=== PATIENT | female | born 1990 | race African-American/Black ===

== ENCOUNTER 2022-07-18 10:03 | Observation (INO) | payer MEDICAID ==
[~2022-07-18] VITALS: Ht 149.9 cm; Wt 91.6 kg
[2022-07-24] MEDS ORDERED: BUTORPHANOL TARTRATE 2 MG/ML VIAL IV PRN (11:00)
[2022-07-24] MEDS ORDERED: LIDOCAINE HCL 1% 20ML VIAL (Pyxis) INJ INFIL SCH (11:00)
[2022-07-24] MEDS ORDERED: NALOXONE HCL 0.4 MG/ML 1ML VIAL IM PRN (11:00)
[2022-07-24] MEDS ORDERED: LACTATED RINGERS 1,000 ML IV SCH (11:00)
[2022-07-24] MEDS ORDERED: OXYTOCIN 30 UNITS/500ML NS PMX 500 ML IV SCH (11:00)
[2022-07-24] MEDS ORDERED: METHYLERGONOVINE MALEATE 0.2 MG/ML IM PRN (11:00)
[2022-07-24] MEDS ORDERED: MISOPROSTOL 100MCG TABLET VG SCH (12:00)
[2022-07-25] MEDS ORDERED: PREN-176 PO (02:44)
[2022-07-25] MEDS ORDERED: VIT1TABL62 PO (02:44)
[2022-07-25] MEDS ORDERED: OMEG-108 PO (02:44)
[2022-07-25] MEDS ORDERED: FERR-71 PO (02:44)
[2022-07-25] MEDS ORDERED: DOCO100C PO (02:44)
== END 2022-07-24 15:45 | disposition home or self-care (01) ==
LOC: 8 EST LDRP 07-24 08:06 → OBSVTOIN 07-24 08:06 → INTOOBSV 07-24 08:06
PROVIDERS: ADMIT Obstetrics & Gynecology; ATTEND Obstetrics & Gynecology
DX: O62.9 Abnormality of forces of labor, unspecified (principal); Z3A.40 40 weeks gestation of pregnancy
CPT/HCPCS: 59025; 76805; 76818; 94640; G0378; 99281; J7120

== ENCOUNTER 2022-07-24 23:35 | Inpatient (IN) | payer MEDICAID ==
[~2022-07-24] VITALS: Ht 149.9 cm; Wt 95.3 kg
[2022-07-25] MEDS ORDERED: PREN-176 PO (02:44)
[2022-07-25] MEDS ORDERED: DOCO100C PO (02:44)
[2022-07-25] MEDS ORDERED: FERR-71 PO (02:44)
[2022-07-25] MEDS ORDERED: OMEG-108 PO (02:44)
[2022-07-25] MEDS ORDERED: VIT1TABL62 PO (02:44)
[2022-07-25] MEDS ORDERED: METHYLERGONOVINE MALEATE 0.2 MG/ML IM PRN (02:45)
[2022-07-25] MEDS ORDERED: OXYTOCIN 30 UNITS/500ML NS PMX 500 ML IV SCH (02:45)
[2022-07-25] MEDS ORDERED: NALOXONE HCL 0.4 MG/ML 1ML VIAL IM PRN (02:45)
[2022-07-25] MEDS ORDERED: LIDOCAINE HCL 1% 20ML VIAL (Pyxis) INJ INFIL SCH (02:45)
[2022-07-25] MEDS ORDERED: BUTORPHANOL TARTRATE 2 MG/ML VIAL IV PRN (02:45)
[2022-07-25 03:25] LABS: EOSINOPHILS % 2.1 % (0.0-5.0); HEMATOCRIT. 36.5 % (36.0-48.0); HEMOGLOBIN. 12.1 g/dL (12.0-16.0); LYMPHOCYTES % 18.4 % (20.0-50.0); MEAN CORPUSCULAR HEMOGLOBIN 30.4 pg (28.0-32.0); MEAN CORPUSCULAR VOLUME 91.7 fL (81.0-99.0); MEAN PLATELET VOLUME 8.6 fl (7.4-10.4); MONOCYTES % 8.4 % (2.0-8.0); NEUTROPHILS % 70.1 % (40.0-76.0); PLATELET 298 x1000/uL (130-400); RED BLOOD CELL COUNT 3.98 mill/uL (4.2-5.4)
[2022-07-25 03:26] LABS: CLARITY URINE CLOUDY (CLEAR); COLOR URINE YELLOW (YELLOW); KETONES URINE NEGATIVE (NEGATIVE); LEUKOCYTE ESTERASE URINE TRACE (NEGATIVE); NITRITE URINE NEGATIVE (NEGATIVE); OCCULT BLOOD URINE NEGATIVE (NEGATIVE); PROTEIN URINE NEGATIVE (NEGATIVE); SPECIFIC GRAVITY URINE 1.016 (1.005-1.030); UROBILINOGEN URINE 0.2 E.U./dL (0.2-1.0)
[2022-07-25 03:37] LABS: INR 0.9; PARTIAL THROMBOPLASTIN TIME 27.1 sec (23.4-31.0); PROTHROMBIN TIME 9.9 sec (9.6-11.0)
[2022-07-25 04:15] LABS: HEPATITIS B SURFACE ANTIGEN NEGATIVE
[2022-07-25 04:18] LABS: *AMPHETAMINES SCREEN URINE NEGATIVE (NEGATIVE); *BARBITURATES SCREEN URINE NEGATIVE (NEGATIVE); *BENZODIAZEPINES SCREEN URINE NEGATIVE (NEGATIVE); *COCAINE SCREEN URINE NEGATIVE (NEGATIVE); CANNABINOID URINE SCREEN NEGATIVE (NEGATIVE); METHADONE URINE SCREEN NEGATIVE (NEGATIVE); OPIATES URINE SCREEN NEGATIVE (NEGATIVE); PHENCYCLIDINE URINE SCREEN NEGATIVE (NEGATIVE)
[2022-07-25] MEDS: LACTATED RINGERS 1,000 ML IV SCH ×4 (04:45→22:17)
[2022-07-25] MEDS ORDERED: LIDOCAINE HCL 2%/EPINEPHRINE 1:100,000 20 ML VIAL INFIL ONE (12:00)
[2022-07-25] MEDS ORDERED: ROPIVACAINE HCL/PF EPIDURAL 200 ML EPI ONE (14:45)
[2022-07-25] MEDS ORDERED: INFLUENZA VACCINE 05/PF 0.5 ML SYRINGE IM ONE (21:00)
[2022-07-25] MEDS ORDERED: CEFAZOLIN SODIUM 1000MG/VIAL ONE (22:33)
[2022-07-25] MEDS ORDERED: ONDANSETRON HCL 4MG/2ML INJ ONE (22:33)
[2022-07-25] MEDS ORDERED: OXYTOCIN 10 UNITS/ML 1ML ONE (22:33)
[2022-07-25] MEDS ORDERED: MORPHINE SULFATE/PF 1MG/ML 10ML AMP ONE (22:33)
[2022-07-25] MEDS ORDERED: DIPHENHYDRAMINE 50MG/ML VIAL ONE (22:33)
[2022-07-25] MEDS ORDERED: FENTANYL CITRATE/PF 50MCG/ML 2ML VIAL ONE (22:34)
[2022-07-25] MEDS ORDERED: TRANEXAMIC ACID 10 ML ONE (23:53)
[2022-07-26] MEDS ORDERED: DIPHENHYDRAMINE 50MG/ML VIAL ONE (00:27)
[2022-07-26] MEDS ORDERED: KETOROLAC 60MG/2ML VIAL IM ONE (00:30)
[2022-07-26] MEDS ORDERED: NALOXONE HCL 0.4 MG/ML 1ML VIAL IV PRN (01:30)
[2022-07-26] MEDS ORDERED: DIPHENHYDRAMINE 50MG/ML VIAL IV PRN (01:30)
[2022-07-26] MEDS ORDERED: BUTORPHANOL TARTRATE 2 MG/ML VIAL IV PRN (01:30)
[2022-07-26] MEDS ORDERED: OXYTOCIN 30 UNITS/500ML NS PMX 500 ML IV SCH (01:45)
[2022-07-26] MEDS ORDERED: HEMORRHOIDAL SUPP PR PRN (01:45)
[2022-07-26] MEDS ORDERED: IBUPROFEN 400MG TABLET PO PRN (01:45)
[2022-07-26] MEDS ORDERED: LANOLIN OINT 7GM TUBE TOP PRN (01:45)
[2022-07-26] MEDS ORDERED: ACETAMINOPHEN WITH CODEINE 300/30MG TABLET PO PRN (01:45)
[2022-07-26] MEDS ORDERED: BISACODYL 10MG SUPP PR PRN (01:45)
[2022-07-26] MEDS ORDERED: HYDROCODONE/ACETAMINOPHEN 5/325MG TABLET PO PRN (01:45)
[2022-07-26] MEDS ORDERED: DIPHENHYDRAMINE 25MG CAPSULE PO PRN (01:45)
[2022-07-26] MEDS ORDERED: ONDANSETRON HCL 4MG/2ML INJ IV PRN (01:45)
[2022-07-26 04:34] VITALS: BP 121/58
[2022-07-26 05:06] VITALS: BP 120/79
[2022-07-26 08:00] VITALS: BP 115/63
[2022-07-26] MEDS: KETOROLAC 30MG/ML VIAL IV SCH ×2 (08:48→16:00)
[2022-07-26] MEDS: SIMETHICONE 80MG TABLET CHEW PO SCH ×2 (08:48→20:57)
[2022-07-26] MEDS ORDERED: METHYLERGONOVINE MALEATE 0.2 MG/ML ONE (14:32)
[2022-07-26 16:00] VITALS: BP 107/66
[2022-07-26 20:00] VITALS: BP 114/63
[2022-07-26] MEDS: DOCUSATE SODIUM 100MG CAPSULE PO SCH (20:56)
[2022-07-26] MEDS: MAGNESIUM/ALUMINUM HYDROXIDE/SIMETHICONE 30ML UDC PO SCH (20:57)
[2022-07-27 04:00] VITALS: BP 104/53
[2022-07-27] MEDS: IBUPROFEN 800MG TABLET PO PRN ×3 (04:35→21:37)
[2022-07-27 06:21] LABS: BASOPHILS % 0.2 % (0.0-2.0); EOSINOPHILS % 0.7 % (0.0-5.0); HEMATOCRIT. 27.7 % (36.0-48.0); HEMOGLOBIN. 9.2 g/dL (12.0-16.0); LYMPHOCYTES % 9.8 % (20.0-50.0); MEAN CORPUSCULAR HEMOGLOBIN 30.4 pg (28.0-32.0); MEAN CORPUSCULAR VOLUME 90.9 fL (81.0-99.0); MEAN PLATELET VOLUME 7.8 fl (7.4-10.4); MONOCYTES % 8.6 % (2.0-8.0); NEUTROPHILS % 80.7 % (40.0-76.0); PLATELET 228 x1000/uL (130-400); RED BLOOD CELL COUNT 3.04 mill/uL (4.2-5.4); RED CELL DISTRIBUTION WIDTH 15.7 % (11.6-14.6)
[2022-07-27 07:30] VITALS: BP 102/54
[2022-07-27] MEDS: MAGNESIUM/ALUMINUM HYDROXIDE/SIMETHICONE 30ML UDC PO SCH ×4 (08:21→21:37)
[2022-07-27] MEDS: PRENATAL VIT/FE FUMARATE/FA TABLET PO SCH (08:22)
[2022-07-27] MEDS: SIMETHICONE 80MG TABLET CHEW PO SCH ×3 (08:22→21:37)
[2022-07-27] MEDS: FERROUS SULFATE 325MG TABLET PO SCH ×2 (08:22→13:21)
[2022-07-27 16:30] VITALS: BP 123/53
[2022-07-27 20:00] VITALS: BP 113/62
[2022-07-27] MEDS: DOCUSATE SODIUM 100MG CAPSULE PO SCH (21:37)
[2022-07-28 04:00] VITALS: BP 96/54
[2022-07-28 08:00] VITALS: BP 102/66
[2022-07-28] MEDS: SIMETHICONE 80MG TABLET CHEW PO SCH (08:21)
[2022-07-28] MEDS: FERROUS SULFATE 325MG TABLET PO SCH (08:21)
[2022-07-28] MEDS: IBUPROFEN 800MG TABLET PO PRN (08:21)
[2022-07-28] MEDS: PRENATAL VIT/FE FUMARATE/FA TABLET PO SCH (08:21)
[2022-07-28] MEDS ORDERED: IBUP-2030 PO (11:59)
== END 2022-07-28 15:00 | disposition home or self-care (01) | DRG 540 ==
LOC: OBSVTOIN 23:35 → 8 EST LDRP 23:35 → 8EST 07-26 03:59
PROVIDERS: ADMIT Obstetrics & Gynecology; ATTEND Obstetrics & Gynecology
PROC: 10D00Z1 Extraction of Products of Conception, Low, Open Approach (ICD-10-PCS; principal; 2022-07-26)
DX: O76 Abnormality in fetal heart rate and rhythm complicating labor and delivery (principal); D62 Acute posthemorrhagic anemia; O99.02 Anemia complicating childbirth; O42.92 Full-term premature rupture of membranes, unspecified as to length of time between rupture and onset of labor; O62.2 Other uterine inertia; Z20.822 Contact with and (suspected) exposure to COVID-19; Z3A.40 40 weeks gestation of pregnancy; Z37.0 Single live birth; O62.0 Primary inadequate contractions
CPT/HCPCS: 36415; 80305; 81003; 85025; 86592; 86703; 86762; 86850; 86900; 87340; 87426; 88307; 90686; 99281; G0378; J0595; J0690; J1200; J1885; J2210; J2274; J2405; J2795; J3010; J3490; J7120; A4315; J2590

== ENCOUNTER 2025-03-30 09:11 | Emergency (ER) | payer MEDICAID ==
[~2025-03-30] VITALS: Ht 149.9 cm; Wt 79.0 kg
[~2025-03-30 09:11] MED LIST: DOCO100C PO; FERR-71 PO; IBUP-2030 PO; OMEG-108 PO; PREN-176 PO; VIT1TABL62 PO
[2025-03-30 09:19] VITALS: TEMP 36.9; O2SAT 100
[2025-03-30] MEDS: DOXYCYCLINE HYCLATE 100MG CAPSULE PO ONE (10:38)
[2025-03-30] MEDS: LIDOCAINE HCL 1% 20ML VIAL INFIL ONE (10:38)
[2025-03-30] MEDS: CEFTRIAXONE SODIUM 500MG VIAL IM ONE (10:38)
[2025-03-30 10:59] LABS: CLARITY URINE CLEAR (CLEAR); COLOR URINE YELLOW (YELLOW); GLUCOSE URINE NEGATIVE (NEGATIVE); KETONES URINE 2+ (NEGATIVE); LEUKOCYTE ESTERASE URINE 2+ (NEGATIVE); NITRITE URINE NEGATIVE (NEGATIVE); OCCULT BLOOD URINE 2+ (NEGATIVE); PH URINE 6.5 (4.5-8.0); PROTEIN URINE 1+ (NEGATIVE); SPECIFIC GRAVITY URINE 1.004 (1.005-1.030); UROBILINOGEN URINE 0.2 E.U./dL (0.2-1.0)
[2025-03-30] MEDS ORDERED: CEPH500C2 MT (11:23)
[2025-03-30] MEDS ORDERED: DOXY100C5 MT (11:23)
[2025-03-30 11:24] LABS: INFLUENZA TYPE A Presumptive Negative (Pres. Neg.); INFLUENZA TYPE B Presumptive Negative (Pres. Neg.)
[2025-03-30 11:25] LABS: RESPIRATORY SYNCYTIAL VIRUS Not Detected (Not Detectd)
[2025-03-30 11:28] LABS: SQUAMOUS EPITHELIAL CELL URINE 1+ /lpf (RARE/1+); WBC URINE 25-50 /hpf (0-2)
[2025-03-30 11:30] LABS: BACTERIA URINE 2+
[2025-03-30 11:49] VITALS: BP 149/70; PULSE 60; RESP 18; O2SAT 100
[2025-04-02 04:07] LABS: CHLAMYDIA TRACHOMATIS NAA Positive (Negative); NEISSERIA GONORRHOEAE NAA Negative (Negative)
== END 2025-03-30 12:19 | disposition home or self-care (01) ==
LOC: ER 09:11
DX: N39.0 Urinary tract infection, site not specified (principal); N12 Tubulo-interstitial nephritis, not specified as acute or chronic; Z20.822 Contact with and (suspected) exposure to COVID-19
CPT/HCPCS: 99283; 87426; 86592; 87491; 87591; 81003; 81025; 87420; 87086; 87186; 87804 ×2; 87077; 36415; 96372; J0696; J2003